=== PATIENT | male | born 2000 | race Caucasian/White ===

== ENCOUNTER 2021-03-29 16:47 | Emergency (ER) | payer MEDICAID ==
[~2021-03-29] VITALS: Ht 175.3 cm; Wt 73.0 kg
[2021-03-29 16:57] VITALS: BP 113/74
[2021-03-29] MEDS ORDERED: TETANUS, DIPHTHERIA, PERTUSSIS VAC/PF 0.5ML (>10YR OLD) IM ONE (17:15)
[2021-03-29] MEDS ORDERED: BACITRACIN ZINC OINT UDPKT TOP ONE (17:15)
[2021-03-29] MEDS ORDERED: LIDOCAINE HCL 1% 10 MG/ML 10ML VIAL INJ NR (17:15)
[2021-03-29] MEDS ORDERED: LIDOCAINE HCL/PF 1% 10 MG/ML 5ML VIAL INFIL ONE (17:15)
[2021-03-29] MEDS ORDERED: CEPH500C2 MT (17:46)
[2021-03-29] MEDS ORDERED: SULF-13 MT (17:46)
== END 2021-03-29 17:57 | disposition home or self-care (01) ==
LOC: ER 16:47
DX: L03.011 Cellulitis of right finger (principal); Z79.899 Other long term (current) drug therapy
CPT/HCPCS: 26010; 90471; 90715; 99283; J3490